=== PATIENT | male | born 1960 | race Caucasian/White ===

== ENCOUNTER 2016-08-19 06:26 | Emergency (ER) | payer OTHER ==
[~2016-08-19] VITALS: Ht 162.6 cm; Wt 90.7 kg
[~2016-08-19 06:26] MED LIST: ADVAIR DISKUS 21 DSK PO; AUGMENTIN 875875 MG PO; CELEXA20 MG PO; DEPAKOTE ER 25250 MG PO; DEPAKOTE250 MG PO; FERROUS SULFAT325 M1 PO; FLEXERIL10 MG PO; MOTRIN 600 MG600 MG PO; PREDNISONE 20MG20 MG PO; PROCRIT20000 U/ML SC; ULTRAM(MONOGRAP50 MG PO; VENTOLIN1 PUF INH
[2016-08-19 06:46] VITALS: BP 143/80
[2016-08-19] MEDS ORDERED: DEPAKOTE500 M1 PO (06:53)
[2016-08-19] MEDS ORDERED: FUROSEMIDE80 M1 PO (06:55)
--- NOTE | 2016-08-19 07:28 | ED SKIN/ALLERGY COMPLAINT ---
History of Present Illness General Chief Complaint: Laceration Procedure Stated Complaint: " LAC TO LT HAND AND WRIS ON COFFEE CUP" Source: patient Exam Limitations: no limitations Vital Signs & Intake/Output Vital Signs & Intake/Output ED Intake and Output 08/20 0000 08/19 1200 Intake Total Output Total Balance Patient 200 lb Weight Allergies Coded Allergies: NO KNOWN ALLERGIES (01/26/14) Reconcile Medications Albuterol Sulfate (Ventolin) 1 UNIT PUF 2 PUF INH Q4 LUNG HEALTH Cephalexin 500 MG CAPSULE 1 CAP PO Q6 wound Citalopram Hydrobromide (Celexa) 20 MG TABLET 30 MG PO DAILY ANXIETY ( Reported) Divalproex Sodium (Depakote) 500 MG TABLET.DR 1,000 MG PO BID ANXIETY ( Reported) FLUTICASONE/SALMETEROL (Advair 250-50 Diskus) 250 MCG-50 MCG/DOSE BLST.W.DEV 1 PUF PO BID BREATHING PROBLEMS (Reported) Furosemide 80 MG TABLET 40 MG PO NEEDED WATER RETENTION (Reported) Triage Note: PT PRESENTS TO ED WITH 1 INCH LAC TO INNER LEFT WRIST. PT REPORTS GETTING LAC AT 5 AM WHILE WASHING A GLASS CUP. BLEEDING CONTROLLED. CMS INTACT. PT DOES NOT KNOW IF TETANUS UP TO DATE. Triage Nurses Notes Reviewed? yes Onset: Just prior to arrival Duration: minute(s):, constant, continues in ED Severity: severe Associated Symptoms: pain and bleeding HPI: pt presents for eval of a left wrist laceration after breaking a coffee cup at home while washing it. pt denies loss of sxn or fxn. denies fb sensation. Past History Travel History Traveled to [place] past 21 day No Medical History Any Pertinent Medical History? see below for history Respiratory: asthma History of MRSA: No History of VRE: No History of CDIFF: No Influenza Vaccine: 03/16/12 Surgical History Surgical History: non-contributory Psychosocial History Who do you live with Spouse Services at Home None What is your primary language Mohawk Tobacco Use: Quit >30 days ago Family History Family History, If Any: FATHER (throat cancerrenal stones). . MOTHER (heart disease-). Hx Contributory? No Review of Systems Review of Systems Constitutional: Reports: no symptoms. EENTM: Reports: no symptoms. Respiratory: Reports: no symptoms. Cardiovascular: Reports: no symptoms. GI: Reports: no symptoms. Genitourinary: Reports: no symptoms. Musculoskeletal: Reports: no symptoms. Skin: Reports: see HPI. Neurological/Psychological: Reports: no symptoms. Hematologic/Endocrine: Reports: no symptoms. Immunologic/Allergic: Reports: no symptoms. All Other Systems: Reviewed and Negative Physical Exam Physical Exam General Appearance: see below Comments: gen: wn, wd, no acute resp distress head: nc/at eyes: normal inspection ears: normal inspection nose: normal inspection throat/mouth: moist mucosa neck: supple, from, no goiter heart: rrr, no mrg lungs: quiet resp back: normal range of motion ext: left hand: nl sensation to light touch in all fingers, nl movment of all fingers, nl cap refill to all fingers, Left wrist: laceration of flexor left wrist in long axis. skin: warm and dry circulatory: normal radial pulses neuro: cn 2-12 grossly intact, speech clear psych: calm, cooperative, no apparent delusion, hallucinations or pressured speech Progress Differential Diagnosis: fb, tendon laceration Plan of Care: Current Medications Sig/Aj Start time Last Medication Dose Stop Time Status Admin Lidocaine/Epinephrine 20 ML ONCE ONE 08/19 729 UNVr 08/19 730 Tetanus/Diphtheria 0.5 ML ONCE ONE 08/19 729 UNVr Toxoids Adsorbed 08/19 730 (Decavac) Comments: 3 sutures placed under usual technique Departure Departure Disposition: HOME OR SELF CARE Condition: Stable Clinical Impression Primary Impression: Laceration of left wrist Qualifiers: Encounter type: initial encounter Qualified Code: S61.512A - Laceration without foreign body of left wrist, initial encounter Secondary Impressions: Tetanus toxoid inoculation Referrals: TAMIA BYRNE MD (PCP/Family) Additional Instructions: Keflex as prescribed. Keep the wound clean by gently washing it daily. Over- the-counter pain medication as needed. Have the sutures removed in 11-12 days. Notify your primary care doctor of this emergency department visit and treatment plan. Return if any concerns or sudden worsening. Please note that there might be incidental findings in your evaluation that are unrelated to the current emergency department visit. Please notify your primary care doctor about this emergency department visit in order to obtain and review all of the testing performed so that these incidental findings can be monitored as needed. If you had an x-ray performed, please understand that some fractures may not be seen on the initial set of x-rays. If your symptoms persist you might need a repeat set of x-rays to check for such a fracture. If you had a laceration evaluated, please understand that foreign bodies such as glass or wood may not be visible to the naked eye or on plain x-rays. If the wound becomes red, swollen, increasingly more painful or if there is any drainage from the wound, please have it reevaluated by a physician for the possibility of a retained foreign body. Thank you for choosing the [facility] Emergency Department for your care. It was a pleasure to serve you today. Nav Smith M.D. [facility] Departure Forms: Customer Survey General Discharge Information Prescriptions: Current Visit Scripts Cephalexin 1 CAP PO Q6 #20 CAP Procedures Laceration/Wound Repair Laceration/Wound Repair: Wound Location: upper extremity Wound's Depth, Shape: subcutaneous, no tendons visible in base of wound Wound Length (cm): 1.6 Wound Explored: clean, no foreign body removed, irrigated extensively Irrigated w/ Saline (ccs): 120 Betadine Prep? Yes Anesthesia: lidocaine w/ epi Volume Anesthetic (ccs): 3 Wound Debrided: minimal Wound Repaired With: sutures Suture Size/Type: 5:0, nylon Number of Sutures: 3 Layer Closure? No
[2016-08-19] MEDS ORDERED: CEPHALEXIN500 M3 PO (08:17)
== END 2016-08-19 08:18 ==
LOC: ERH 06:26
DX: S61.512A Laceration without foreign body of left wrist, initial encounter (principal); W25.XXXA Contact with sharp glass, initial encounter; Y93.G1 Activity, food preparation and clean up; Y92.000 Kitchen of unspecified non-institutional (private) residence as the place of occurrence of the external cause
CPT/HCPCS: 90471; 90714

== ENCOUNTER 2017-11-28 13:18 | Inpatient (IN) | payer OTHER ==
[~2017-11-28] VITALS: Ht 167.6 cm; Wt 81.9 kg
[~2017-11-28 13:18] MED LIST changes: +ADVAIR 250-501 EACH INH; -ADVAIR DISKUS 21 DSK PO; +CELEXA10 M1 PO; +CEPHALEXIN500 M3 PO; +DEPAKOTE500 M1 PO; +FUROSEMIDE80 M1 PO
[2017-11-28 13:45] LABS: ABSOLUTE BASOPHIL COUNT 0 /CUMM (0.0-0.2); ABSOLUTE EOSINOPHIL COUNT 0 /CUMM (0.0-0.7); ABSOLUTE GRANULOCYTE CT 5.1 /CUMM (1.4-6.5); ABSOLUTE LYMPH COUNT 1.2 /CUMM (1.2-3.4); ABSOLUTE MONOCYTE COUNT 1.4 /CUMM (0.10-0.60); BASOPHIL % 0.2 % (0.0-2.0); EOSINOPHIL % 0.2 % (0-5); GRANULOCYTE % 66.1 % (42.2-75.2); HEMATOCRIT 44.9 % (42-52); MEAN CORPUSCULAR HGB 29.7 PG (27.0-31.0); MEAN CORPUSCULAR HGB CONC 34.1 G/DL (33.0-37.0); MEAN CORPUSCULAR VOLUME 87.3 FL (80.0-94.0); MEAN PLATELET VOLUME 7.3 FL (7.4-10.4); PLATELET COUNT 143 /CUMM (130-400); RBC DISTRIBUTION WIDTH 14.6 % (11.5-14.5); RED BLOOD CELL CT 5.15 /CUMM (4.70-6.10); WHITE BLOOD CELL COUNT 7.7 /CUMM (4.8-10.8)
--- NOTE | 2017-11-28 14:58 | ED GENERAL ADULT ---
History of Present Illness General Chief Complaint: General Adult Stated Complaint: LOW GRADE TEMP/DIFF BREATHING Source: patient Exam Limitations: no limitations Vital Signs & Intake/Output Vital Signs & Intake/Output Vital Signs Date Time Temp Pulse Resp B/P B/P Pulse O2 O2 Flow FiO2 Mean Ox Delivery Rate 11/28 2255 98.2 76 18 113/63 90 11/28 2136 98.4 66 16 119/69 94 Room Air 11/28 1601 99.7 85 16 116/68 95 Room Air 11/28 1343 92 11/28 1328 99.5 90 16 124/75 93 Room Air ED Intake and Output 11/29 0000 11/28 1200 Intake Total 1000 Output Total Balance 1000 Intake, IV 1000 Patient 183 lb Weight Weight Bed scale Measurement Method Allergies Coded Allergies: NO KNOWN ALLERGIES (01/26/14) Triage Note: 57 C/O COUGH PRODUCTIVE OF "GREEN, [place] STUFF"; ALSO C/O FEELING TIRED AND HAVING DECREASED APPETITE/PO INTAKE. TEMP 99.5. SPEAKING CLEARLY IN TRIAGE WITH NO RESP DISTRESS. SAT 93-94%. HX COPD AND PNEUMOTHORAX. EVALD BY PRADIP HOLLY IN TRIAGE Triage Nurses Notes Reviewed? yes Onset: Abrupt Duration: day(s): (3-4), constant, continues in ED, getting worse Timing: single episode today Injury Environment: home Severity: mild, moderate No Modifying Factors: none Associated Symptoms: cough HPI: 57-year-old male history of COPD pneumothorax presents for evaluation of cough COngestion shortness of breath the past 3 or 4 days. Patient reports a cough productive of yellow-green sputum that is worse at night causing difficulty sleeping. He also reports shortness of breath and wheezing. He has a history of COPD he feels like this is similar. He is a former heavy smoker he recently quit. He denies chest pain hemoptysis lower extremity edema nausea vomiting. He does report associated sweats and chills and has had low-grade temperatures at home. No recent surgery or recent trauma. He's never had a heart attack. Patient has been using his inhalers without any improvement. Patient also notes that prior to the onset of symptoms he had a choking sensation while eating. He states he felt like something went down the wrong pipe in the next DAY symptoms started. (Remy MOSELEY,Antonio) Reconcile Medications Albuterol Sulfate (Proair Hfa) 90 MCG HFA.AER.AD 2 PUF INH Q4 RESP. (Reported ) Citalopram Hydrobromide (Celexa) 10 MG TABLET 30 MG PO DAILY ANXIETY ( Reported) Divalproex Sodium (Depakote) 500 MG TABLET.DR 1,000 MG PO BID ANXIETY ( Reported) Fluticasone/Salmeterol (Advair 250-50 Diskus) 250 MCG-50 MCG/DOSE BLST.W.DEV 1 PUF INH BID RESP. (Reported) (Emeka HARTMAN,Herson Crenshaw) Past History Travel History Traveled to [place] past 21 day No Medical History Any Pertinent Medical History? 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 . MOTHER (heart disease-). Hx Contributory? No (Antonio Monroe) Review of Systems Review of Systems Constitutional: Reports: fever, malaise. EENTM: Reports: no symptoms. Respiratory: Reports: see HPI, cough, short of breath, sputum production, wheezing. Cardiovascular: Reports: no symptoms. GI: Reports: no symptoms. Genitourinary: Reports: no symptoms. Musculoskeletal: Reports: no symptoms. Skin: Reports: no symptoms. Neurological/Psychological: Reports: no symptoms. Hematologic/Endocrine: Reports: no symptoms. Immunologic/Allergic: Reports: no symptoms. All Other Systems: Reviewed and Negative (Antonio Monroe) Physical Exam Physical Exam General Appearance: well developed/nourished, no apparent distress, alert, awake Head: atraumatic, normal appearance Eyes: Bilateral: normal appearance, PERRL, EOMI. Ears, Nose, Throat: normal pharynx, normal ENT inspection, hearing grossly normal Neck: normal inspection, supple, full range of motion Respiratory: chest non-tender, no respiratory distress, rhonchi, wheezing Cardiovascular: regular rate/rhythm, normal peripheral pulses Peripheral Pulses: 2+ radial (R), 2+ radial (L) Gastrointestinal: soft, non-tender Back: normal inspection, normal range of motion, no vertebral tenderness Extremities: normal inspection, normal range of motion, no edema Neurologic/Psych: no motor/sensory deficits, awake, alert, oriented x 3, normal gait Skin: intact, normal color, warm/dry Lymphatic: no anterior cervical lm Core Measures ACS in differential dx? No CVA/TIA Diagnosis: No Sepsis Present: No Sepsis Focused Exam Completed? No (Remy MOSELEY,Antonio) Progress Differential Diagnoses I considered the following diagnoses in my evaluation of the patient: [COPD exacerbation, pneumonia, acute bronchitis, PE, CHF exacerbation, pleural effusion, empyema] Plan of Care: Orders Procedure Date/time Status Heart Healthy Diet 11/29 B Active PARTIAL THROMBOPLASTIN TIME 11/29 0300 Active Seizure Precautions 11/28 2344 Active Heparin Drip- AFIB/FLUTTER/PE/ 11/28 2313 Active Weight 11/28 2302 Active Vital Signs 11/28 2302 Active Teach/Educate 11/28 2302 Active Pain Treatment and Response 11/28 2302 Active Nutritional Intake, Monitor 11/28 2302 Active Isolation 11/28 2302 Active Intake & Output 11/28 2302 Active Patient Care Conference 11/28 2302 Active Activity/Ambulation 11/28 2302 Active Pathway - chart 11/28 2211 Active House Staff 11/28 2211 Active Patient Data 11/28 221 Active Code Status 11/28 2211 Active Patient Data 11/28 2129 Active Saline Lock 11/28 2054 Active Misc Message 11/28 2054 Active ED Holding Orders 11/28 2054 Active Admit to inpatient 11/28 2054 Active Vital Signs 11/28 2054 Active Code Status 11/28 2054 Complete Add-on Test (ER Only) 11/28 1950 Active BLOOD CULTURE 11/28 1931 Active LOWER RESPIRATORY CULTURE 11/28 1917 Active Add-on Test (ER Only) 11/28 1911 Active Add-on Test (ER Only) 11/28 1519 Active Intake & Output 11/28 1352 Active PARTIAL THROMBOPLASTIN TIME 11/28 1339 Complete PROTHROMBIN TIME 11/28 1339 Complete D-DIMER 11/28 1339 Complete B-TYPE NATRIURETIC PEP (BNP) 11/28 1339 Complete TROPONIN LEVEL 11/28 1332 Complete COMPREHENSIVE METABOLIC PANEL 11/28 1332 Complete CBC WITHOUT DIFFERENTIAL 11/28 1332 Complete EKG 11/28 1319 Active VTE Mechanical Prophylaxis 11/28 UNK Active Vital Signs 11/28 UNK Complete Current Medications Sig/Aj Start time Last Medication Dose Stop Time Status Admin Acetaminophen 650 MG Q6P PRN 11/28 2214 AC (Tylenol) Morphine Sulfate 2 MG Q4P PRN 11/28 2214 AC (MORPHINE SULFATE) Heparin Sodium 25,000 UNIT Q24H 11/28 1945 AC 11/28 (Porcine) 2100 (Heparin) Sodium Chloride 500 ML Laboratory Tests 11/28/17 1339: Anion Gap 12, Estimated GFR 57 L, BUN/Creatinine Ratio 13.8, Glucose 95, Calcium 9.0, Total Bilirubin 0.7, AST 50, ALT 49, Alkaline Phosphatase 64, Troponin I < 0.01, Pdf-D-Xwelemdrjcp Pept 119, Total Protein 6.7, Albumin 3.5, Globulin 3.2, Albumin/Globulin Ratio 1.1, PT 11.5, INR 1.05, APTT 30, D-Dimer High Sensitivty 365 H, CBC w Diff NO MAN DIFF REQ, RBC 5.15, MCV 87.3, MCH 29.7 , MCHC 34.1, RDW 14.6 H, MPV 7.3 L, Gran % 66.1, Lymphocytes % 15.9 L, Monocytes % 17.6 H, Eosinophils % 0.2, Basophils % 0.2, Absolute Granulocytes 5.1, Absolute Lymphocytes 1.2, Absolute Monocytes 1.4 H, Absolute Eosinophils 0 , Absolute Basophils 0 Microbiology 11/28 2110 BLOOD: Blood Culture - RECD 11/28 2100 BLOOD: Blood Culture - RECD 11/28 1949 LOWER RESP: Respiratory Culture - RES 11/28 1949 LOWER RESP: Gram Stain - RES Patient seen and evaluated. He is here with cough congestion shortness of breath and wheezing. His cough is productive of yellow sputum. He has a history of COPD. On exam he has diffuse wheezing and rhonchi bilaterally. Initial oxygen saturation is 92-93% on room air he has no history of oxygen dependence. Patient was given a DuoNeb and prednisone at triage reports feeling better. Repeat oxygen saturation is within normal limits. Labs EKG chest x-ray ordered. Patient still reports a cough he was given Robitussin-AC. No signs of hypoxia or cyanosis. Patient was ambulated in the emergency department and maintains a oxygen saturation in the mid 90s. All blood work is within normal limits other than a mildly elevated d-dimer. Patient will get a CTA. CTA shows evidence of emphysema aspiration pneumonia and a small subsegmental PE. No evidence of right heart strain on CTA. Spoke with Dr. Hayden who recommends patient be admitted for antibiotics steroids and anticoagulation. Rectal exam is negative for blood. Patient will be heparinized. Unasyn blood cultures respiratory cultures ordered. Case discussed with Dr. Hendrickson he agrees. Diagnostic Imaging: Viewed by Me: Radiology Read, CT Scan. Discussed w/RAD: Radiology Read, CT Scan. Radiology Impression: PATIENT: SAGAR SR PRESENT AGE: 57 PATIENT ACCOUNT NO: [id number] : 62 LOCATION: [facility] ORDERING PHYSICIAN: Gus MOSELEY SERVICE DATE: 11/28/17 EXAM TYPE: RAD - XRY -CHEST XRAY, TWO VIEWS EXAMINATION: XR CHEST CLINICAL INFORMATION: Cough. COMPARISON: Chest radiograph 09/20/2014. CT chest 06/25/2017. TECHNIQUE: 2 views of the chest were obtained. FINDINGS: Overall there has been no substantial change when compared to prior imaging. Coarse linear scarring within the right lung is redemonstrated. There is a trace right pleural effusion. No overt consolidative disease. No pneumothorax. The cardiac silhouette and upper mediastinal contours are unremarkable. No acute osseous finding. IMPRESSION: Stable examination. There is coarse linear scarring within the right upper hemithorax. Trace right effusion. No overt consolidative disease. DICTATED BY: Tony Villegas MD DATE/TIME DICTATED:11/28/171508 SENIOR ENGINEERING TECH: CHANDA DATE/TIME TRANSCRIBED:11/28/171508 CONFIDENTIAL, DO NOT COPY WITHOUT APPROPRIATE AUTHORIZATION. <Electronically signed in Other Vendor System> SIGNED BY: Tony Villegas MD 11/28/17 7374 Initial ED EKG: normal sinus rhythm, INCOMPLETE RBBB. minimal ST depressions in 2 the 4 and V5 appear unchanged from previous Prior EKG: unchanged (Remy MOSELEY,Antonio) Departure Departure Disposition: STILL A PATIENT Condition: Stable Clinical Impression Primary Impression: Pulmonary embolism Qualifiers: Pulmonary embolism type: other Chronicity: acute Acute cor pulmonale presence: without acute cor pulmonale Qualified Code: I26.99 - Other pulmonary embolism without acute cor pulmonale Secondary Impressions: Aspiration pneumonia Qualifiers: Aspiration pneumonia type: unspecified Laterality: right Lung location: unspecified part of lung Qualified Code: J69.0 - Pneumonitis due to inhalation of food and vomit COPD exacerbation Referrals: Dalila Ferro MD (PCP/Family) Departure Forms: Customer Survey General Discharge Information Admission Note Spoke With: Chayito Willis MD Documentation of Exam: Documentation of any treatments & extenuating circumstances including Concerns Regarding Discharge (functional status, medication knowledge or non-compliance, living conditions, etc.) that warrant an admission rather than observation: [ Anticoagulation, IV steroids, IV antibiotics, serial labs, pulmonology consult, hypercoagulability workup] (Antonio Monroe) PA/[employer] Co-Sign Statement Statement: ED Attending supervision documentation- [X] I saw and evaluated the patient. I have also reviewed all the pertinent lab results and diagnostic results. I agree with the findings and the plan of care as documented in the PA's/[employer]'s documentation. 11/28/17, 20:10.... Pt with PE, merits blood thinners, admission, presently comfortable and doing well. [] I have reviewed the ED Record and agree with the PA's/[employer]'s documentation. [] Additions or exceptions (if any) to the PAs/[employer]'s note and plan are summarized below: [] (Emeka HARMTAN,Herson Crenshaw) Critical Care Note Critical Care Note Critical Care Time: non-applicable (Antonio Monroe)
--- NOTE | 2017-11-28 15:15 | RADIOLOGY REPORT ---
EXAMINATION: XR CHEST CLINICAL INFORMATION: Cough. COMPARISON: Chest radiograph 09/20/2014. CT chest 06/25/2017. TECHNIQUE: 2 views of the chest were obtained. FINDINGS: Overall there has been no substantial change when compared to prior imaging. Coarse linear scarring within the right lung is redemonstrated. There is a trace right pleural effusion. No overt consolidative disease. No pneumothorax. The cardiac silhouette and upper mediastinal contours are unremarkable. No acute osseous finding. IMPRESSION: Stable examination. There is coarse linear scarring within the right upper hemithorax. Trace right effusion. No overt consolidative disease.
--- NOTE | 2017-11-28 19:15 | CT SCAN REPORT ---
EXAMINATION: CT ANGIOGRAM OF THE CHEST WITH AND WITHOUT CONTRAST (CT PULMONARY ANGIOGRAM FOR PE) CLINICAL INFORMATION: Shortness of breath. Cough. Possible pulmonary embolus. COMPARISON: Chest radiograph 11/28/2017. CT chest 05/07/2016, 06/25/2017. TECHNIQUE: Prior to contrast administration, noncontrast localization images were obtained. Subsequently, multidetector volumetric imaging was performed from the thoracic inlet to below the diaphragms following the administration of 80 mL Omnipaque 350 intravenous contrast. No contrast reaction reported. Sagittal, coronal, and MIP oblique sagittal reformatted images were obtained on the CT workstation, uploaded to PACS, and reviewed. Total exam dose-length product 489 mGy-cm. FINDINGS: QUALITY OF STUDY/CONTRAST BOLUS: Satisfactory PULMONARY ARTERIES: Absent intraluminal opacification is noted within several apical subsegmental arteries within the right upper pulmonary lobe (axial image 149/498 series 2, axial image 124/490, series 2). These findings are suspicious for subsegmental pulmonary emboli in situ. The main and central pulmonary arteries are normal in appearance and caliber. THORACIC AORTA: No aneurysm or dissection. LUNG: Peribronchial wall thickening groundglass opacities are present in the posterior right lung base and suspicious for bronchopneumonia and/or aspiration pneumonitis. Moderate centrilobular emphysema is noted in addition to mild/moderate paraseptal emphysematous changes. A coarse reticular density within the right upper lung zone is again noted and is consistent with chronic parenchymal scarring of the lungs. No mosaic attenuation of the lungs is identified which might correlate with differential pulmonary arterial perfusion. PLEURA: No pleural effusion or pneumothorax. MEDIASTINUM: Normal heart size. No pericardial effusion. No hilar or mediastinal lymphadenopathy. No evidence of septal bowing or right heart strain. CHEST WALL/AXILLA: No axillary or internal mammary lymphadenopathy. OSSEOUS STRUCTURES: No acute or suspicious osseous abnormality. UPPER ABDOMEN: Unremarkable. No reflux of contrast into the hepatic veins to suggest elevated right heart pressures. IMPRESSION: 1. CT pulmonary angiogram positive for pulmonary emboli. Findings suspicious for subsegmental pulmonary emboli in situ within the the apical segment of the right upper pulmonary lobe consistent with an overall mild thrombus burden. 2. Focal peribronchial wall thickening and alveolar disease within the posterior right lung base suspicious for moderate focal bronchopneumonia. Aspiration pneumonitis could have a similar appearance. 3. Moderate centrilobular emphysema. VTE: positive This critical result was discussed with Antonio Alberto MD by telephone at 11/28/2017 7:11 PM and it was ascertained that the content and urgency of the report was understood at the time of direct communication.
[2017-11-28 19:30] LABS: PT 11.5 SEC (9.4-12.5); PTT 30 SEC (25-37)
[2017-11-28] MEDS ORDERED: PROAIR HFA8.5 GM INH (22:13)
--- NOTE | 2017-11-28 22:24 | History & Physical ---
Jean Sam 11/28/17 2223: General Information and HPI History of Present Illness: Mr. Orozco is a 57 yo M with a PMH of bullous emphysema s/p PTX complicated by empyema, AIN and acute glomerulonephritis, stage I diastolic dysfunction (ECHO 2016 EF ~55%), anxiety who presents to the ED with SOB x 3 days. Patient reports he was in [place] a few days ago for work and drove 13 hours to [place] on . He reports he stopped at every rest stop to stretch. His SOB since has worsened and reports a persistent cough with grayish sputum production. His symptoms were accompanied by dizziness and a fever with a recorded Tmax 101.3. He is being followed by gas appliance installer-Dr. Lemon and senior net c developer-Dr. Hayden whom he sees routinely. He has annual CT screening for lung cancer because of his previous history of smoking (quit 4 years ago, smoke 2 PPD 40 years) that has been negative. He believes he is due for a Pneumovax vaccine. He denies CP, calf tenderness, sick contacts, lower extremity swelling, urinary or bowel symptoms. In the ED they started him on IV heparin, Prednisone 60 mg and 3 g IV Unasyn Allergies/Medications Allergies: Coded Allergies: NO KNOWN ALLERGIES (01/26/14) Home Med list Albuterol Sulfate (Proair Hfa) 90 MCG HFA.AER.AD 2 PUF INH Q4 RESP. (Reported ) Citalopram Hydrobromide (Celexa) 10 MG TABLET 30 MG PO DAILY ANXIETY ( Reported) Divalproex Sodium (Depakote) 500 MG TABLET.DR 1,000 MG PO BID ANXIETY ( Reported) Fluticasone/Salmeterol (Advair 250-50 Diskus) 250 MCG-50 MCG/DOSE BLST.W.DEV 1 PUF INH BID RESP. (Reported) Past History Travel History Traveled to [place] past 21 day No Medical History Neurological: NONE EENT: NONE Cardiovascular: NONE Respiratory: asthma, COPD, PNEUMOTHORAX Gastrointestinal: NONE Hepatic: NONE Renal: KIDNEY FAILURE Musculoskeletal: NONE Psychiatric: NONE Endocrine: NONE Blood Disorders: NONE Cancer(s): NONE ANIMAL PHYSIOLOGIST/Reproductive: NONE History of MRSA: No History of VRE: No History of CDIFF: No Isolation History: Standard Surgical History Surgical History: non-contributory Past Family/Social History Family History Relations & Conditions if any FATHER (throat cancerrenal stones). . MOTHER (heart disease-). Psychosocial History Services at Home: None Review of Systems Review of Systems Constitutional: Reports: see HPI. Exam & Diagnostic Data Last 24 Hrs of Vital Signs/I&O Vital Signs Date Time Temp Pulse Resp B/P B/P Pulse O2 O2 Flow FiO2 Mean Ox Delivery Rate 11/29 0646 97.5 76 16 128/78 94 Room Air 11/28 2255 98.2 76 18 113/63 90 11/28 2136 98.4 66 16 119/69 94 Room Air 11/28 1601 99.7 85 16 116/68 95 Room Air 11/28 1343 92 11/28 1328 99.5 90 16 124/75 93 Room Air Intake & Output 11/29 0800 11/29 0000 11/28 1600 Intake Total 850 1000 Output Total Balance 850 1000 Intake, IV 750 1000 Intake, Oral 100 Patient 181 lb 183 lb 183 lb Weight Weight Bed scale Bed scale Reported by Patient Measurement Method Physical Exam General Appearance Alert, Oriented X3, Cooperative, No Acute Distress HEENT Atraumatic, PERRLA, EOMI, Mucous Membr. moist/pink Cardiovascular Regular Rate, Normal S1, Normal S2 Lungs RLL decreased breath sounds Abdomen Normal Bowel Sounds, Soft, No Tenderness Extremities No Edema Last 24 Hrs of Labs/Kulwinder: Laboratory Tests 11/29/17 0300: APTT Cancelled 11/29/17 0045: Troponin I < 0.01, APTT 89 H 11/28/17 1339: Anion Gap 12, Estimated GFR 57 L, BUN/Creatinine Ratio 13.8, Glucose 95, Calcium 9.0, Total Bilirubin 0.7, AST 50, ALT 49, Alkaline Phosphatase 64, Troponin I < 0.01, Kxx-W-[place] Pept 119, Total Protein 6.7, Albumin 3.5, Globulin 3.2, Albumin/Globulin Ratio 1.1, PT 11.5, INR 1.05, APTT 30, D-Dimer High Sensitivty 365 H, CBC w Diff NO MAN DIFF REQ, RBC 5.15, MCV 87.3, MCH 29.7 , MCHC 34.1, RDW 14.6 H, MPV 7.3 L, Gran % 66.1, Lymphocytes % 15.9 L, Monocytes % 17.6 H, Eosinophils % 0.2, Basophils % 0.2, Absolute Granulocytes 5.1, Absolute Lymphocytes 1.2, Absolute Monocytes 1.4 H, Absolute Eosinophils 0 , Absolute Basophils 0 Microbiology 11/30 631 URINE ROUT: Legionella Antigen - ORD 11/30 631 URINE ROUT: Streptococcus pneumoniae Antigen (M - ORD 11/28 2110 BLOOD: Blood Culture - RECD 11/28 2100 BLOOD: Blood Culture - RECD 11/28 1949 LOWER RESP: Respiratory Culture - RES 11/28 1950 LOWER RESP: Gram Stain - RES Diagnostic Data EKG Results SR, HR 77, QTc 421, incomplete RBBB Other Results CTA CHEST-PULMONARY EMBOLISM IMPRESSION: 1. CT pulmonary angiogram positive for pulmonary emboli. Findings suspicious for subsegmental pulmonary emboli in situ within the the apical segment of the right upper pulmonary lobe consistent with an overall mild thrombus burden. 2. Focal peribronchial wall thickening and alveolar disease within the posterior right lung base suspicious for moderate focal bronchopneumonia. Aspiration pneumonitis could have a similar appearance. 3. Moderate centrilobular emphysema. VTE: positive Assessment/Plan Assessment: Mr. Orozco is a 57 yo M with a PMH of bullous emphysema s/p PTX complicated by empyema, AIN and acute glomerulonephritis, stage I diastolic dysfunction (ECHO 2016 EF ~55%), anxiety who presents to the ED with SOB x 3 days #R-sided subsegmental PE #R lung base Bronchopneumonia #LUH (baseline ~1.6) Plan: Admit to general med for further evaluation and management TRC/nebs as needed Serial tropes last ECG to rule out ACS ECHO to evaluate SHD and/or valvular abnormalities Urine Strep pneumo and Legionella antigen IV heparin as per pulm IV ceftriaxone and azithromycin We will resume his home meds citalopram and divalproex Pulm consult in a.m. Pain: IV morphine Diet: Heart healthy DVT ppx: IV heparin Code: Full As Ranked By This Provider Problem List: 1. Pulmonary embolism Qualifiers Pulmonary embolism type: other Chronicity: acute Acute cor pulmonale presence: without acute cor pulmonale Qualified Code: I26.99 - Other pulmonary embolism without acute cor pulmonale 2. Pneumonia Core Measures/Misc (03/02) Acute Coronary Syndrome ACS Diagnosis: No Congestive Heart Failure Congestive Heart Failure Diagnosis No Cerebrovascular Accident CVA/TIA Diagnosis: No VTE (View Protocol) VTE Risk Factors Immobility No Mechanical VTE Prophylaxis d/t N/A MechProphylax Ordered No VTE Pharm Prophylaxis d/t NA PharmProphylax ordered Sepsis (View protocol) Sepsis Present: No If YES complete Sepsis Event Note If YES complete Sepsis Event Note Leoncio HARTMANMaritzakareem 11/29/17 0232: Core Measures/Misc (03/02) Sepsis (View protocol) If YES complete Sepsis Event Note If YES complete Sepsis Event Note Resident Review Statement Resident Statement: examined this patient, discussed with internet marketing executive, agreed with internet marketing executive Other Findings: This is a 57-year-old male with past medical history significant for COPD, bullous emphysema and pneumothorax that required chest tube and subsequently complicated by empyema which resulted in AIN and IgA nephropathy in 2003, who comes in for chief complaint of shortness of breath, cough, fatigue and fever. Patient stated that his symptoms of shortness of breath woth progressive cough and increased sputum production started on Friday. He also notes decreased by mouth intake. He recently traveled to [place] but denies any sick contacts. On he noted MAXIMUM TEMPERATURE 101. 3 in the AM and given his symptoms now in conjunction with fever he decided to come back to [place]. He states he made a [address] back in one stretch but did use rest stops along the way. He endorses fever, a choking sensation with food, cough, sputum production , malaise, some wheezing, and fatigue. He denies any headache, nausea, vomiting , diarrhea, sore throat. He quit smoking about 4 years ago but had over [id number] history prior to that. Only pertinent family history is a that his mother was diagnosed with idiopathic hypertrophic subaortic stenosis. Apparently he was also worked up for was found to be negative. He follows up with Dr. Lemon for nephrology and Dr. Hayden for pulmonology. Lab workup: Creatinine 1.3, he states his baseline is around 1.6. Normal glucose, calcium, troponin, CBC. D-dimer 365. CTA shows PE finding suspicious for subsegmental pulmonary emboli in situ within the apical segment of the right upper pulmonary lobe consistent with an overall mild thrombus burden. He also has a focal peribronchial wall thickening and alveolar disease within the posterior right lung base suspicious for moderate focal bronchopneumonia. Possible aspiration pneumonitis as well. There is also evidence of moderate centrilobular emphysema. EKG: Rate 77, evidence of right bundle branch block. ---- Assessment: This is a 57-year-old male with past medical history of bullous emphysema pneumothorax complicated by empyema and AIN plus IgA nephropathy who comes in for chief complaint of productive cough, fatigue, and fever. On workup he was found to have subsegmental pulmonary embolus and possible bronchopneumonia. As such, he is admitted for further workup in the general medicine floor. Plan: 1. Pulmonary embolus: His PESI score shows Class II, Low Risk: 1.7-3.5% 30-day mortality in this group. Patient does describe prolonged immobility given 13 hour car ride yesterday. There is no obvious evidence for malignancy or other predisposing state at this time. Dr. Hayden, his senior net c developer, was contacted and patient was started on heparin drip. In ED he was given a dose of Unasyn DuoNeb and 60 mg of prednisone. Note that his d-dimer was only 365. * Continue heparin drip. * Appreciate pulmonology recommendations * 2-D echocardiogram * Troponin and EKG * Reassess need for steroid in AM. 2. Bronchopneumonia versus aspiration pneumonia: Patient does state that he has been experiencing a choking sensation with his food more recently. However, I saw him eat a sandwich during my interview and he seemed to have no difficulties. * Swallow eval * Start ceftriaxone and azithromycin * Sputum culture 3. Emphysema: * Continue DuoNeb * He had 60 mg of prednisone in ED. It does not seem like he is having an active COPD exacerbation at this time. Reevaluate in a.m. for continued steroid regimen. 4. CK D: Patient states his baseline creatinine is around 1.5 and 1.6. Today's 1.3. This is doing better. However note that he did get IV contrast for the CTA. * Monitor creatinine * IV hydration Full code Chemical DVT prophylaxis with heparin Heart healthy diet Chayito Willis 11/29/17 0537: Core Measures/Misc (03/02) Sepsis (View protocol) If YES complete Sepsis Event Note If YES complete Sepsis Event Note Attending MD Review Statement Attending Statement Attending MD Statement: examined this patient, discuss w/resident/PA/PRODUCTION INSPECTOR, agreed w/resident/PA/PRODUCTION INSPECTOR, reviewed EMR data (avail), reviewed images, amended to note Attending Assessment/Plan: CC: Cough with green colored sputum production PMH: Post infectious glomerulonephritis, anxiety, history of pneumothorax, COPD with emphysema Patient states that he was not feeling well since last 4 days, experiencing worsening of cough with green colored sputum production, chest congestion, worsening shortness of breath. He also had fever of 101.3. All the symptoms started around Friday when he was in [place] related to some work. 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 After his work was over he drove 13 hours from [place] is here as he was not feeling that well. Even after going home he had persistent cough, shortness of breath and generalized weakness and not feeling well so he called senior net c developer who suggested him to came to ER. He feels much better after breathing treatment in ER. Other than above-mentioned symptoms complete ROS unremarkable. He denies chest pain, chest tightness, cough when, cough tenderness or swelling, chills at home, any sick contacts, URI symptoms at the beginning, he had mild lightheadedness associated with weakness. Patient denies any choking, vomiting or aspiration. Vitals: Temperature 99.5 , pulse 90, RR 16, blood pressure 124/75, saturating 93 % on room air. On exam: A O 3, cooperative, no acute distress, neck supple, JVD normal, no lymphadenopathy, mucosa moist, no focal neurological deficit, no dependent edema , no obvious skin rashes or inflammation CVS: S1-S2, RRR. RS: Right-sided crackles. Abdomen: Soft, NT, ND, bowel sounds present. CTA chest: 1. CT pulmonary angiogram positive for pulmonary emboli. Findings suspicious for subsegmental pulmonary emboli in situ within the the apical segment of the right upper pulmonary lobe consistent with an overall mild thrombus burden. 2. Focal peribronchial wall thickening and alveolar disease within the posterior right lung base suspicious for moderate focal bronchopneumonia. Aspiration pneumonitis could have a similar appearance. 3. Moderate centrilobular emphysema. Assessment and plan 57-year-old male with past medical history significant for COPD presented in ER for worsening shortness of breath, cough, greenish color sputum production, fever, lethargy, weakness or cord over last 4 days gradually worsening. He also drove 13 hours from [place] to [place] while sick. In ER he was significantly dyspneic and clinically improved after nebulization treatment. CTA shows pulmonary embolism and right lung base pneumonia. He is not significantly wheezing on auscultation has mild crackles on the right base. Hemodynamically stable, not hypoxic. PE appears to be provoked. Stone Paver was called from ER was suggested to continue IV heparin drip. Patient received high load of contrast for CTA, given his history of renal impairment in the past, we should be watchful. + Pulmonary embolism + Right lung base pneumonia + History of Post infectious glomerulonephritis, anxiety, history of pneumothorax, COPD with emphysema - Admit to general medicine - IV azithromycin and azithromycin - Blood culture, sputum culture, Legionella and strep antigen - TRC nebulization with albuterol and ipratropium scheduled and when necessary - Mucinex scheduled twice a day - Continue rest of the home medications - Continue heparin drip - 2-D echocardiogram in a.m. - Serial troponin and ECGs - Adequate pain control - DVT prophylaxis - inform pulmonology were patient being in hospital Patient wants to go home by Friday for Father's Day.
[2017-11-28 22:55] VITALS: BP 113/63
[2017-11-29 01:50] LABS: PTT 89 SEC (25-37)
--- NOTE | 2017-11-29 05:39 | Admission Certification ---
Admission Certification Certification Statement - As attending physician, I certify that at the time of - admission, based on clinical presentation, severity of - symptoms, need for further diagnostic testing and - therapeutic interventions, and risk of adverse outcomes - without in-hospital treatment, in my clinical assessment, - this patient requires an acute hospital stay for a minimum - of two nights or longer. I have also considered psychsocial - factors such as support system, advanced age, financial - issues, cognitive issues, and failed out-patient treatments, - past re-admission history, safety of patient, and lack of - compliance as applicable. Specific rationale supporting this admission is: Pulmonary embolism, right lung base pneumonia
[2017-11-29 06:46] VITALS: BP 128/78
--- NOTE | 2017-11-29 08:41 | PN- Housestaff ---
Lauren HARTMAN,Bob 11/29/17 0841: Subjective Follow-up For: pulmonary embolism aspiration pneumonia Subjective: afebrile, on room air complaining of cough Review of Systems Constitutional: Reports: see HPI. Objective Last 24 Hrs of Vital Signs/I&O Vital Signs Date Time Temp Pulse Resp B/P B/P Pulse O2 O2 Flow FiO2 Mean Ox Delivery Rate 11/29 1412 98.4 79 20 112/71 93 11/29 0646 97.5 76 16 128/78 94 Room Air 11/28 2255 98.2 76 18 113/63 90 11/28 2136 98.4 66 16 119/69 94 Room Air 11/28 1601 99.7 85 16 116/68 95 Room Air Intake & Output 11/29 1600 11/29 0800 11/29 0000 Intake Total 850 1000 Output Total Balance 850 1000 Intake, IV 750 1000 Intake, Oral 100 Patient 81.873 kg 83.007 kg Weight Weight Bed scale Bed scale Measurement Method Physical Exam General Appearance: Alert, Oriented X3, Cooperative, No Acute Distress Cardiovascular: Regular Rate, Normal S1, Normal S2, No Murmurs Lungs: Clear to Auscultation, diminished air movement Abdomen: Normal Bowel Sounds, Soft, No Tenderness, No Masses Extremities: No Clubbing, No Cyanosis, No Edema, Normal Pulses Current Medications: Current Medications Sig/Aj Start time Last Medication Dose Route Stop Time Status Admin Acetaminophen 650 MG Q6P PRN 11/28 2215 AC PO Ampicillin Sodium/ 0 .STK-MED ONE 11/28 1941 DC Sulbactam Sodium .ROUTE Ampicillin Sodium/ 3,000 MG ONCE ONE 11/28 1915 DC 11/28 Sulbactam Sodium IV 11/28 194 1950 Sodium Chloride 100 ML Apixaban 10 MG BID 11/29 1323 AC 11/29 PO 1423 Azithromycin 500 MG DAILY 11/29 0900 AC 11/29 Sodium Chloride 250 ML IV 0833 Benzocaine/Menthol 1 TIERA Q2P PRN 11/29 1015 AC 11/29 PO 1109 Benzonatate 100 MG TID 11/29 1003 AC 11/29 PO 1049 Budesonide/ 2 PUF BID 11/29 0900 AC 11/29 Formoterol Fumarate INH 0835 Ceftriaxone Sodium 1,000 MG DAILY 11/29 09 DC 11/29 IV 0833 Citalopram 30 MG DAILY 11/29 0900 AC 11/29 Hydrobromide PO 0840 Divalproex Sodium 1,000 MG BID 11/29 0900 AC 11/29 PO 0840 Guaifenesin 600 MG Q12 11/29 1003 AC 11/29 PO 1049 Guaifenesin 10 ML ONCE ONE 11/29 0330 DC 11/29 PO 11/29 0331 0322 Guaifenesin/Codeine 10 ML ONCE ONE 11/28 1700 DC 11/28 Phosphate PO 11/28 1701 1839 Guaifenesin/ 10 ML Q4P PRN 11/29 1015 AC 11/29 Dextromethorphan PO 1119 Heparin Sodium 0 .STK-MED ONE 11/28 2033 DC (Porcine) .ROUTE Heparin Sodium 5,000 UNIT ONCE ONE 11/28 194 DC 11/28 (Porcine) IV 11/28 Heparin Sodium 25,000 UNIT Q24H 11/28 194 DC 11/28 (Porcine) IV 2100 Sodium Chloride 500 ML Morphine Sulfate 2 MG Q4P PRN 11/28 2215 IV Sodium Chloride 1,000 ML ONCE ONE 11/29 0130 DC 11/29 IV 11/29 1129 0142 Sodium Chloride 1,000 ML BOLUS ONE 11/28 1715 DC 11/28 IV 11/28 1814 1839 Last 24 Hrs of Lab/Kulwinder Results Last 24 Hrs of Labs/Mics: Laboratory Tests 11/29/17 0710: Anion Gap 10, Estimated GFR > 60, BUN/Creatinine Ratio 20.0, Troponin I < 0.01, CBC w Diff NO MAN DIFF REQ, RBC 4.48 L, MCV 88.2, MCH 29.6, MCHC 33.6, RDW 14.5 , MPV 8.6, Gran % 73.6, Lymphocytes % 11.5 L, Monocytes % 14.8 H, Eosinophils % 0.1, Basophils % 0, Absolute Granulocytes 4.7, Absolute Lymphocytes 0.7 L, Absolute Monocytes 0.9 H, Absolute Eosinophils 0, Absolute Basophils 0 11/29/17 0300: APTT Cancelled 11/29/17 0045: Troponin I < 0.01, APTT 89 H Microbiology 11/29 1051 URINE ROUT: Legionella Antigen - COMP 11/29 105 URINE ROUT: Streptococcus pneumoniae Antigen (M - COMP 11/28 2110 BLOOD: Blood Culture - RES 11/28 2100 BLOOD: Blood Culture - RES 11/28 1949 LOWER RESP: Respiratory Culture - RES 11/28 1949 LOWER RESP: Gram Stain - RES Assessment/Plan Assessment: 57-year-old male with past medical history of bullous emphysema pneumothorax complicated by empyema and AIN plus IgA nephropathy who comes in for chief complaint of productive cough, fatigue, and fever. Chest CTA showed subsegmental RUL pulmonary embolus and possible RLL bronchopneumonia, possibly aspiration. Chest CTA 1. CT pulmonary angiogram positive for pulmonary emboli. Findings suspicious for subsegmental pulmonary emboli in situ within the the apical segment of the right upper pulmonary lobe consistent with an overall mild thrombus burden. 2. Focal peribronchial wall thickening and alveolar disease within the posterior right lung base suspicious for moderate focal bronchopneumonia. Aspiration pneumonitis could have a similar appearance. 3. Moderate centrilobular emphysema. Pulmonary embolism: No hemodynamic instability or hypoxia Discontinue heparin gtt Start eliquis 10mg po bid x 7 days then 5mg po bid Pulmonology consultation Aspiration pneumonia vs pneumonitis Infiltrate in RLL on CT Reported fever at home, currently afebrile Swallow evaluation AIN from cephalosporins in the past Continue azithromycin, although may be aspiration pneumonitis, consider d/c abx Sputum culture COPD: TRC evaluation No steroids Continue nebulized albuterol and ipatropium and symbicort History of AIN/LUH: Creatinine 1.3 on admission Currently 1.1 after IVFs Continue to monitor Heart healthy diet DVT ppx- heparin Full code Problem List: 1. Aspiration pneumonia 2. Pneumonia 3. Pulmonary embolism Pain Ratin Pain Location: n/a Pain Goal: Pain 4 or less Pain Plan: prn Tomorrow's Labs & Rationales: cbc, bep Isaiah Hayden MD 11/29/17 1346: Attending MD Review Statement Attending Statement Attending MD Statement: examined this patient, discuss w/resident/PA/ORACLE SOA ARCHITECT, agreed w/resident/PA/ORACLE SOA ARCHITECT, discussed with family, reviewed EMR data (avail), discussed with nursing, discussed with case mgmt, reviewed images, amended to note Attending Assessment/Plan: Impression 57 year old man * small subsegmental PE in apical segment of RUL * likely chemical pneumonitis after accidental choking episode, aspiration pneumonia vs pneumonitis Plan -stop heparin gtt -begin eliquis 10mg po bid x 7 days, then 5mg po bid for ~3 months -recent trip to [place] - likely provoked by immobility -stop ceftriaxone, can give zithromax for 5 days, unlikely necessary to continue abx, likely chemical pneumonitis, if worsens can have anaerobic coverage -monitor labs, dc in am if stable -no extra imaging is necessary at this juncture DVT prophylaxis at all times
[2017-11-29 08:56] LABS: ABSOLUTE BASOPHIL COUNT 0 /CUMM (0.0-0.2); ABSOLUTE EOSINOPHIL COUNT 0 /CUMM (0.0-0.7); WHITE BLOOD CELL COUNT 6.4 /CUMM (4.8-10.8)
[2017-11-29 09:12] LABS: ABSOLUTE GRANULOCYTE CT 4.7 /CUMM (1.4-6.5); ABSOLUTE LYMPH COUNT 0.7 /CUMM (1.2-3.4); ABSOLUTE MONOCYTE COUNT 0.9 /CUMM (0.10-0.60); BASOPHIL % 0 % (0.0-2.0); EOSINOPHIL % 0.1 % (0-5); GRANULOCYTE % 73.6 % (42.2-75.2); MEAN CORPUSCULAR HGB 29.6 PG (27.0-31.0); MEAN CORPUSCULAR HGB CONC 33.6 G/DL (33.0-37.0); MEAN CORPUSCULAR VOLUME 88.2 FL (80.0-94.0); MEAN PLATELET VOLUME 8.6 FL (7.4-10.4); PLATELET COUNT 130 /CUMM (130-400); RBC DISTRIBUTION WIDTH 14.5 % (11.5-14.5); RED BLOOD CELL CT 4.48 /CUMM (4.70-6.10)
[2017-11-29 09:14] LABS: HEMATOCRIT 39.5 % (42-52)
[2017-11-29 14:12] VITALS: BP 112/71
--- NOTE | 2017-11-29 20:16 | ECHOCARDIOGRAM REPORT ---
SAGAR SR Age: 57 : 1960 Gender: M Exam Date: 11/29/2017 12:26 Exam Location: [facility] Ht (in): 66 Wt (lb): 183 BSA: 1.99 BP: 128 / 78 Ordering Physician: Kathya Fang MD Referring Physician: Kathya Fang MD Technologist: Jacklyn Pierre [facility] Room Number: 231 Indications: Rhythm: Technical Quality: Good FINDINGS Left Ventricle Normal global left ventricular size, wall thickness, systolic function with no obvious regional wall motion abnormalities. Left ventricular ejection fraction is estimated at 60 %. Right Ventricle Normal right ventricular size and function. Right Atrium Normal right atrial size. Left Atrium Normal left atrial size. Mitral Valve Structurally normal mitral valve. Trace mitral regurgitation. Aortic Valve Structurally normal trileaflet aortic valve. Mild aortic regurgitation. Tricuspid Valve Structurally normal tricuspid valve. Trace tricuspid regurgitation. Unable to estimate the right ventricular systolic pressure. Pulmonic Valve Pulmonic valve not well visualized, grossly normal. Physiologic pulmonic regurgitation. Pericardium No pericardial effusion. Great Vessels Normal size aortic root. CONCLUSIONS Normal global left ventricular size, wall thickness, systolic function with no obvious regional wall motion abnormalities. Left ventricular ejection fraction is estimated at 60 %. Normal right ventricular size and function. Unable to estimate the right ventricular systolic pressure. No pericardial effusion. Kulwinder Curtis M.D. (Electronically Signed) Final Date: 29 November 2017 20:15 MEASUREMENTS (Male / Female) Normal Values 2D ECHO LV Diastolic Diameter PLAX 4.5 cm 4.2 - 5.9 / 3.9 - 5.3 cm LV Systolic Diameter PLAX 2.7 cm 2.1 - 4.0 cm LV Fractional Shortening PLAX 40.0 % 25 - 46 % LV Ejection Fraction 2D Teich 70.8 % IVS Diastolic Thickness 1.0 cm LVPW Diastolic Thickness 1.0 cm LV Relative Wall Thickness 0.4 LVOT Diameter 2.0 cm Aortic Root Diameter 3.3 cm LA Systolic Diameter LX 3.4 cm 3.0 - 4.0 / 2.7 - 3.8 cm LA Volume 57.0 cm 18 - 58 / 22 - 52 cm DOPPLER AV Peak Velocity 193.0 cm/s AV Peak Gradient 14.9 mmHg LVOT Peak Velocity 125.0 cm/s LVOT Peak Gradient 6.3 mmHg AV Area Cont Eq pk 2.0 cm Mitral E Point Velocity 67.6 cm/s Mitral A Point Velocity 75.5 cm/s Mitral E to A Ratio 0.9 MV Deceleration Time 271.0 ms TV Peak Velocity 266.7 cm/s PV Peak Velocity 144.0 cm/s PV Peak Gradient 8.3 mmHg LV E' Lateral Velocity 12.3 cm/s Mitral E to LV E' Lateral Ratio 5.5 LV E' Septal Velocity 10.3 cm/s Mitral E to LV E' Septal Ratio 6.6
[2017-11-29 23:01] VITALS: BP 118/64
[2017-11-30 06:54] VITALS: BP 130/72
[2017-11-30 08:54] LABS: ABSOLUTE BASOPHIL COUNT 0 /CUMM (0.0-0.2); ABSOLUTE EOSINOPHIL COUNT 0.1 /CUMM (0.0-0.7); ABSOLUTE LYMPH COUNT 1.2 /CUMM (1.2-3.4); ABSOLUTE MONOCYTE COUNT 0.8 /CUMM (0.10-0.60); BASOPHIL % 0.2 % (0.0-2.0); EOSINOPHIL % 0.9 % (0-5); GRANULOCYTE % 66.5 % (42.2-75.2); HEMATOCRIT 40.8 % (42-52); MEAN CORPUSCULAR HGB 29.5 PG (27.0-31.0); MEAN CORPUSCULAR VOLUME 86.8 FL (80.0-94.0); MEAN PLATELET VOLUME 7.9 FL (7.4-10.4); PLATELET COUNT 165 /CUMM (130-400); RBC DISTRIBUTION WIDTH 14.4 % (11.5-14.5); RED BLOOD CELL CT 4.71 /CUMM (4.70-6.10)
[2017-11-30] MEDS ORDERED: BENZONATATE100 M1 PO ×2 (10:55→11:22)
[2017-11-30] MEDS ORDERED: ELIQUIS5 M1 PO ×2 (10:55→11:22)
[2017-11-30] MEDS ORDERED: GUAIFENESIN ER600 MG PO ×2 (10:55→11:22)
[2017-11-30] MEDS ORDERED: GUAIFENESIN DM S5 ML PO ×2 (10:55→11:22)
--- NOTE | 2017-11-30 10:58 | Patient Discharge Instructions ---
Discharge Instructions General Discharge Information You were seen/treated for: Pulmonary embolism COPD Special Instructions: Please take meds as prescribed Please follow up with pcp and Dr. Hayden within 1 week of discharge Please note you were started on a blood thinner (eliquis). Please follow instructions - take 2 tabs tonight (11/30) - take 2 tabs twice a day (AM and PM) until 12/05 - then take 1 tab twice a day and follow up with physician for further instructions Acute Coronary Syndrome Inclusion Criteria At DC or during hospital stay patient has or had the following: Discharge Core Measures Meds if any: Prescribed or Continued at Discharge Meds if any: NOT Prescribed or Continued at Discharge Congestive Heart Failure Inclusion Criteria At DC or during hospital stay patient has or had the following: Discharge Core Measures Meds if any: Prescribed or Continued at Discharge Meds if any: NOT Prescribed or Continued at Discharge Cerebrovascular accident Inclusion Criteria At DC or during hospital stay patient has or had the following: CVA/TIA Diagnosis No Discharge Core Measures Meds if any: Prescribed or Continued at Discharge Meds if any: NOT Prescribed or Continued at Discharge Venous thromboembolism Discharge Core Measures - Per Current guidelines, there needs to be overlap - treatment for the first 5 days of Warfarin therapy. - If discharged on Warfarin prior to 5 days of - overlap therapy, the patient will need to be - assessed for post discharge needs including - *Post discharge parental anticoagulation - *Warfarin and/or parental anticoagulation education - *Follow up date to check INR post discharge Meds if any: Prescribed or Continued at Discharge Note: Overlap Therapy is Warfarin and Anticoagulant Meds if any: NOT Prescribed or Continued at Discharge
[2017-11-30] MEDS ORDERED: AZITHROMYCIN250 M1 PO ×2 (11:01→11:22)
--- NOTE | 2017-11-30 12:00 | PN- Gen Med ---
Assessment/Plan Medical Assessment: Impression 57 year old man * small subsegmental PE in apical segment of RUL * likely chemical pneumonitis after accidental choking episode, aspiration pneumonia vs pneumonitis Problem List: 1. Bullous emphysema 2. Pulmonary embolism Qualifiers Pulmonary embolism type: other Chronicity: acute Acute cor pulmonale presence: without acute cor pulmonale Qualified Code: I26.99 - Other pulmonary embolism without acute cor pulmonale 3. Aspiration pneumonia Qualifiers Aspiration pneumonia type: unspecified Laterality: right Lung location: unspecified part of lung Qualified Code: J69.0 - Pneumonitis due to inhalation of food and vomit Plan: Plan -eliquis 10mg po bid x 7 days, then 5mg po bid for ~3 months -recent trip to [place] - likely provoked by immobility -stop ceftriaxone, can give zithromax for 5 days, unlikely necessary to continue abx, likely chemical pneumonitis, if worsens can have anaerobic coverage -no extra imaging is necessary at this juncture DVT prophylaxis at all times f/u in office Discharge Plan Discharge Disposition: home Subjective Follow-up For: PE, chemical pneumonitis Review of Systems Constitutional: Denies: no symptoms. Cardiovascular: Denies: no symptoms, see HPI, chest pain, edema, orthopena, palpitations, peripheral edema, syncope. Respiratory: Denies: no symptoms, see HPI, cough, hemoptysis, orthopnea, short of breath, sputum production, stridor, wheezing. Gastrointestinal: Denies: no symptoms, see HPI, abdominal pain, bloating, constipation, diarrhea, distention, bowel incontinence, melena, nausea, bloody stool, changes in stool, vomiting, steatorrhea. Genitourinary: Denies: no symptoms, see HPI, discharge, dysuria, frequency, hematuria, hesitation, nocturia, pain, urgency. Objective Last 24 Hrs of Vital Signs/I&O Vital Signs Date Time Temp Pulse Resp B/P B/P Pulse O2 O2 Flow FiO2 Mean Ox Delivery Rate 11/30 0654 98.7 66 16 130/72 96 Room Air 11/29 2301 98.1 78 20 118/64 94 Room Air 11/29 1600 Room Air 11/29 1412 98.4 79 20 112/71 93 Intake & Output 11/30 1600 11/30 0800 11/30 0000 Intake Total 100 720 Output Total Balance 100 720 Intake, Oral 100 720 Physical Exam General Appearance: Alert, Oriented X3 Skin: No Rashes HEENT: Atraumatic, EOMI Cardiovascular: Regular Rate, Normal S1, Normal S2 Lungs: Clear to Auscultation Abdomen: Normal Bowel Sounds Current Medications: Current Medications Sig/Aj Start time Last Medication Dose Route Stop Time Status Admin Acetaminophen 650 MG Q6P PRN 11/28 2215 DCD PO Apixaban 10 MG BID 11/29 1323 DCD 11/30 PO 0819 Azithromycin 500 MG DAILY 11/29 0900 DCD 11/29 Sodium Chloride 250 ML IV 0833 Benzocaine/Menthol 1 TIERA Q2P PRN 11/29 1015 DCD 11/29 PO 1109 Benzonatate 100 MG TID 11/29 1003 DCD 11/29 PO 2041 Budesonide/ 2 PUF BID 11/29 0900 DCD 11/30 Formoterol Fumarate INH 0817 Ceftriaxone Sodium 1,000 MG DAILY 11/29 0900 DC 11/29 IV 0833 Citalopram 30 MG DAILY 11/29 0900 DCD 11/30 Hydrobromide PO 0819 Divalproex Sodium 1,000 MG BID 11/29 0900 DCD 11/30 PO 0819 Guaifenesin 10 ML .STK-MED ONE 11/30 0300 DC PO 11/30 0301 Guaifenesin 600 MG Q12 11/29 1003 DCD 11/29 PO 2041 Guaifenesin/ 10 ML Q4P PRN 11/29 1015 DCD 11/30 Dextromethorphan PO 0301 Heparin Sodium 25,000 UNIT Q24H 11/28 1945 DC 11/28 (Porcine) IV 2100 Sodium Chloride 500 ML Morphine Sulfate 2 MG Q4P PRN 11/28 2215 DCD IV Last 24 Hrs of Labs/Mics: Laboratory Tests 11/30/17 0745: Anion Gap 11, Estimated GFR > 60, BUN/Creatinine Ratio 17.5, CBC w Diff NO MAN DIFF REQ, RBC 4.71, MCV 86.8, MCH 29.5, MCHC 34.0, RDW 14.4, MPV 7.9, Gran % 66.5, Lymphocytes % 19.9 L, Monocytes % 12.5 H, Eosinophils % 0.9, Basophils % 0.2, Absolute Granulocytes 4.0, Absolute Lymphocytes 1.2, Absolute Monocytes 0.8 H, Absolute Eosinophils 0.1, Absolute Basophils 0 11/29/17 1400: APTT Cancelled
--- NOTE | 2017-11-30 12:03 | Discharge Summary ---
Visit Information Visit Dates Admission Date: 11/28/17 Discharge Date: 11/30/17 Hospital Course Course Attending Physician: Chayito Willis MD Primary Care Physician: Dalila Ferro MD Other Care Providers: Isaiah Hayden M.D. Hospital Course: 57 year old man * small subsegmental PE in apical segment of RUL * likely chemical pneumonitis after accidental choking episode, aspiration pneumonia vs pneumonitis -eliquis 10mg po bid x 7 days, then 5mg po bid for ~3 months -recent trip to [place] - likely provoked by immobility -stop ceftriaxone, can give zithromax for 5 days, unlikely necessary to continue abx, likely chemical pneumonitis, if worsens can have anaerobic coverage -no extra imaging is necessary at this juncture Pt known to me from office, his COPD care and PE follow up includin his pneumonic process can be followed with myself, he is to be seen within the next few weeks. Allergies: Coded Allergies: NO KNOWN ALLERGIES (01/26/14) Disposition Summary Disposition Principal Diagnosis: PE chemical pneumonitis/aspiration pna Additional Diagnosis: hx of COPD Discharge Disposition: home or self care Discharge Instructions General Discharge Information Code Status: Full Code Patient's Diet: regular Patient's Activity: return to work on fri12/03/2017 Follow-Up Instructions/Appts: see DC instructions Medications at Discharge Discharge Medications: Continue taking these medications: Citalopram Hydrobromide (Celexa) 10 MG TABLET 30 Milligram ORAL DAILY Comments: Last Taken: 11/30/17 Time: 0800 Fluticasone/Salmeterol (Advair 250-50 Diskus) 250 MCG-50 MCG/DOSE BLST.W.DEV 1 Puff Inhale through mouth TWICE DAILY Divalproex Sodium (Depakote) 500 MG TABLET.DR 1,000 Milligram ORAL TWICE DAILY Qty = 120 Comments: Last Taken: 11/30/17 Time: 0800 Albuterol Sulfate (Proair Hfa) 90 MCG HFA.AER.AD 2 Puff Inhale through mouth Every 4 hours Start taking the following new medications: Azithromycin (Azithromycin) 250 MG TABLET 1 Tablet ORAL As Directed Qty = 4 No Refills Instructions: 2 the first day followed by 1 for days 2-5 Apixaban (Eliquis) 5 MG TABLET 0 ORAL SEE INSTRUCTIONS Qty = 64 No Refills Instructions: TAKE 2 TABS AT NIGHT ON 11/30 2 TABS TWICE A DAY ON 12/01 TO 12/05 THEN TAKE 1 TAB TWICE A DAY AFTER Benzonatate (Benzonatate) 100 MG CAPSULE 100 Milligram ORAL THREE TIMES A DAY NEEDED Qty = 30 No Refills Instructions: take as needed Guaifenesin/Dextromethorphan (Guaifenesin Dm Syrup) 100 MG-10 MG/5 ML SYRUP 10 Milliliters ORAL EVERY 6 HOURS NEEDED as needed for COPD Qty = 210 No Refills Instructions: PLEASE TAKE PRESCRIBED AND ONLY IF NEEDED Guaifenesin (Guaifenesin ER) 600 MG TAB.ER.12H 1 Tablet ORAL EVERY 12 HOURS Qty = 30 No Refills Copies To: Kasie HARTMAN,Dalila; Jackelyn HARTMAN,Isaiah
== END 2017-11-30 11:33 | DRG 177 ==
LOC: ERH 13:18 → ERHI 20:55 → ENRESERV 21:52 → ENTRNSPT 22:19 → 2NA 22:37 → EDTRNSPT 22:47 → EDTRNSPTSTS 22:47 → CMPTRNSPT 22:53 → ENPENDDIS 11-30 11:14 → 2NA 11-30 11:33
PROVIDERS: Physician Assistant; Preventive Medicine Public Health & General Preventive Medicine; Student in an Organized Health Care Education/Training Program
DX: J69.0 Pneumonitis due to inhalation of food and vomit (principal); I26.99 Other pulmonary embolism without acute cor pulmonale; N17.9 Acute kidney failure, unspecified; J43.9 Emphysema, unspecified; F41.9 Anxiety disorder, unspecified; Z79.51 Long term (current) use of inhaled steroids
CPT/HCPCS: 2NAP; 36592; 71046; 82436; 87040; 87070; 87449; 87450; 93005; 93010; 93306; 96374; 96375; 99291; J0456; J0696; J1644; J3490; J7040; J7512